=== PATIENT | female | born 1940 | race Caucasian/White ===

== ENCOUNTER 2021-05-02 06:32 | Inpatient (IN) | payer MEDICARE ==
[2021-04-30 12:28] LABS: Basophils # (auto) 0 10 ^3/uL (0-0.2); Basophils % (auto) 0.4 % (0.0-2.0); Eosinophils # (auto) 0 10 ^3/uL (0-0.8); Eosinophils % (auto) 0.5 % (0.0-7.0); Hematocrit 35.4 % (36.0-46.0); Hemoglobin 12.2 g/dL (12.2-16.2); Lymphocytes # (auto) 2.4 10 ^3/uL (0.4-5.4); Lymphocytes % (auto) 29.6 % (10.0-50.0); Mean Corpuscular Hemoglobin 33.2 pg (28.0-32.0); Mean Corpuscular Hgb Conc. 34.3 g/dL (32.0-36.0); Mean Corpuscular Volume 96.7 fL (80.0-100.0); Monocytes # (auto) 0.5 10 ^3/uL (0-1.3); Monocytes % (auto) 5.7 % (0.0-12.0); Neutrophils # (auto) 5.2 10 ^3/uL (1.6-8.6); Neutrophils % (auto) 63.8 % (37.0-80.0); Nucleated Red Blood Cells % 0.2 %; Red Blood Cells 3.67 10^6/uL (4.0-5.20); Red Cell Distribution Width 13.2 % (11.8-14.3); White Blood Cell 8.2 10^3/uL (4.4-10.8)
[2021-04-30 12:48] LABS: Urine Bacteria NONE SEEN /hpf (None Seen); Urine Blood Negative /uL (Negative); Urine Specific Gravity 1.008 (1.001-1.035); Urine WBC 12 /hpf (0 - 5)
[2021-04-30 13:16] LABS: Albumin 3.2 g/dL (3.4-5.0); BUN/Creatinine Ratio 10.9; Bilirubin, Total 0.5 mg/dL (0.2-1.0); Total Protein 6.8 g/dL (6.4-8.2)
[2021-05-02] VITALS (10 sets, daily range): BP systolic 86–119; BP diastolic 46–76
[~2021-05-02] VITALS: Ht 172.7 cm; Wt 64.9 kg
[~2021-05-02 06:32] MED LIST: CLINGEL TOP; ESOM40CA39 PO; GABA300C10 PO; HYDR4CRE EX; POTA-220 PO; ROSU10TA16 PO; TRIA0.1O TOP; [UNRECOGNIZED DRUG - CODE] TOP
[2021-05-02] MEDS ORDERED: TRANEXAMIC ACID 20 ML ONE (07:06)
[2021-05-02] MEDS: BUPIVACAINE W/ EPINEPH 0.25% INJ 50ML MDV ONE ×2 (07:06→09:21)
[2021-05-02] MEDS: VANCOMYCIN HCL 1000 MG VL ONE ×4 (07:08→09:22)
[2021-05-02] MEDS: KETOROLAC TROMETH 30 MG/ML 1ML VIAL ONE ×2 (07:08→09:21)
[2021-05-02] MEDS ORDERED: ACETAMINOPHEN IV 100 ML IV ONE (07:11)
[2021-05-02] MEDS ORDERED: ceFAZolin 1GM/50ML 100 ML IV ONE (07:11)
[2021-05-02] MEDS ORDERED: CELECOXIB 100 MG CAP ONE (07:11)
[2021-05-02] MEDS ORDERED: PREGABALIN CAPSULE 75 MG CAP ONE (07:13)
[2021-05-02] MEDS ORDERED: BUPIVACAINE 0.5% P/F INJ 10 ML VIAL ONE (07:28)
[2021-05-02] MEDS ORDERED: fentaNYL CITRATE 100 MCG/2 ML VL ONE (07:29)
[2021-05-02] MEDS ORDERED: MORPHINE SULF(PF) 0.5MG/ML 10ML VIAL ONE (07:29)
[2021-05-02] MEDS ORDERED: HYDROCORTISONE SOD SUCC 100 MG/2ML INJ VIAL ONE (07:29)
[2021-05-02] MEDS ORDERED: MIDAZOLAM HCL 2MG/2ML 2ml VIAL (1mg/ml) ONE (07:29)
[2021-05-02] MEDS ORDERED: PROPOFOL 10 MG/ML 20 ML IV ONE (07:30)
[2021-05-02] MEDS ORDERED: ONDANSETRON HCL 4 MG/2 ML VIAL ONE (07:30)
[2021-05-02] MEDS ORDERED: ePHEDrine SULFATE 50 MG/ML AMP ONE ×2 (07:30→12:10)
[2021-05-02] MEDS ORDERED: GLYCOPYRROLATE 0.2 MG/ML 1ML VIAL ONE (07:30)
[2021-05-02] MEDS ORDERED: PHENYLEPHRINE HCL 10 MG/ML VL ONE (07:30)
[2021-05-02] MEDS ORDERED: ceFAZolin 1GM/50ML 50 ML IV SCH (09:45)
[2021-05-02] MEDS ORDERED: traMADol HCL 50 MG TAB PO PRN (09:45)
[2021-05-02] MEDS ORDERED: ONDANSETRON HCL 4 MG/2 ML VIAL IV PRN ×3 (09:45→10:00)
[2021-05-02] MEDS ORDERED: HYDROmorphone HCL 2 MG/ML VL IV PRN (09:45)
[2021-05-02] MEDS ORDERED: OXYCODONE W/ ACETAMINOPHEN 5/325MG TABLET PO PRN (09:45)
[2021-05-02] MEDS ORDERED: ACETAMINOPHEN 325 MG TAB PO PRN (09:45)
[2021-05-02] MEDS: LACTATED RINGER'S 1,000 ML IV SCH ×2 (09:45→21:16)
[2021-05-02] MEDS ORDERED: diphenhdrAMINE HCL 50 MG/1 ML VL IV PRN (10:00)
[2021-05-02] MEDS ORDERED: ENOXAPARIN SOD 40 MG/0.4 ML SYRINGE SC SCH (10:00)
[2021-05-02] MEDS ORDERED: NALOXONE HCL 0.4 MG/ML VIAL IV PRN (10:00)
[2021-05-02] MEDS ORDERED: DexAMETHasone SOD PHOS 10MG/1ML VIAL INJ IV PRN (10:00)
[2021-05-02] MEDS: PANTOPRAZOLE 40 MG TAB PO SCH (10:00)
[2021-05-02] MEDS: POTASSIUM CHL 20 Meq TABLET PO SCH (10:00)
[2021-05-02] MEDS: DOCUSATE SOD 100 MG CAP PO SCH ×2 (10:00→21:18)
[2021-05-02] MEDS ORDERED: FOLIC ACID 1 MG, MULTIPLE VITAMIN 10 ML, MAGNESIUM SULF SDV 50% 8 MEQ, THIAMINE INJ 100... INJ SCH ×5 (12:00)
[2021-05-02] MEDS ORDERED: ePHEDrine SULFATE 50 MG/ML AMP IV ONE (12:45)
[2021-05-02] MEDS: ceFAZolin 1GM/50ML 50 ML IV SCH ×2 (13:44→21:16)
[2021-05-02] MEDS: SODIUM CHLOR 0.9% PF (SALINE LOCK) 10ML VIAL/SYR IV SCH ×2 (14:00→21:16)
[2021-05-02] MEDS ORDERED: NITROGLYCERIN 0.4 MG SL TAB SL PRN (16:15)
[2021-05-02] MEDS ORDERED: MORPHINE SULFATE INJECTION 2 MG/ML SYRG IV PRN (16:15)
[2021-05-02] MEDS: HYDROCORTISONE SOD SUCC 100 MG/2ML INJ VIAL IV SCH ×2 (16:30→21:18)
[2021-05-02] MEDS: GABAPENTIN 300 MG CAP PO SCH (21:19)
[2021-05-02] MEDS: ATORVASTATIN 20 MG TAB PO SCH (21:19)
[2021-05-03] VITALS (13 sets, daily range): BP systolic 90–108; BP diastolic 45–64
[2021-05-03 06:06] LABS: Albumin 2.1 g/dL (3.4-5.0); Calcium 7.8 mg/dL (8.5-10.1); Potassium 4.2 mmol/L (3.5-5.1)
[2021-05-03 06:12] LABS: BUN/Creatinine Ratio 13.1; Bilirubin, Total 0.3 mg/dL (0.2-1.0); Total Protein 4.9 g/dL (6.4-8.2)
[2021-05-03] MEDS ORDERED: LORazepam 0.5 MG TAB PO PRN (06:30)
[2021-05-03] MEDS: LACTATED RINGER'S 1,000 ML IV SCH (06:49)
[2021-05-03] MEDS: SODIUM CHLOR 0.9% PF (SALINE LOCK) 10ML VIAL/SYR IV SCH ×3 (06:50→23:25)
[2021-05-03] MEDS: HYDROCORTISONE SOD SUCC 100 MG/2ML INJ VIAL IV SCH (06:50)
[2021-05-03 07:59] LABS: Hematocrit 34.5 % (36.0-46.0); Hemoglobin 11.6 g/dL (12.2-16.2)
[2021-05-03] MEDS: DOCUSATE SOD 100 MG CAP PO SCH ×2 (09:57→23:25)
[2021-05-03] MEDS: POTASSIUM CHL 20 Meq TABLET PO SCH (09:58)
[2021-05-03] MEDS: PANTOPRAZOLE 40 MG TAB PO SCH (09:58)
[2021-05-03] MEDS: ENOXAPARIN SOD 40 MG/0.4 ML SYRINGE SC SCH (09:58)
[2021-05-03] MEDS: HYDROmorphone HCL 2 MG/ML VL IV PRN ×2 (14:36→23:29)
[2021-05-03] MEDS: GABAPENTIN 300 MG CAP PO SCH (23:26)
[2021-05-03] MEDS: ATORVASTATIN 20 MG TAB PO SCH (23:26)
[2021-05-04 05:00] VITALS: BP 122/43
[2021-05-04 05:37] LABS: Basophils # (auto) 0 10 ^3/uL (0-0.2); Eosinophils # (auto) 0.1 10 ^3/uL (0-0.8); Hemoglobin 8.3 g/dL (12.2-16.2); Mean Corpuscular Volume 96.7 fL (80.0-100.0); Monocytes # (auto) 0.5 10 ^3/uL (0-1.3)
[2021-05-04 05:42] LABS: Basophils % (auto) 0.2 % (0.0-2.0); Eosinophils % (auto) 0.8 % (0.0-7.0); Hematocrit 24.4 % (36.0-46.0); Lymphocytes # (auto) 2.3 10 ^3/uL (0.4-5.4); Lymphocytes % (auto) 29.5 % (10.0-50.0); Mean Corpuscular Hemoglobin 33.1 pg (28.0-32.0); Mean Corpuscular Hgb Conc. 34.2 g/dL (32.0-36.0); Neutrophils # (auto) 4.8 10 ^3/uL (1.6-8.6); Neutrophils % (auto) 62.5 % (37.0-80.0); Red Blood Cells 2.52 10^6/uL (4.0-5.20); Red Cell Distribution Width 13.3 % (11.8-14.3); White Blood Cell 7.7 10^3/uL (4.4-10.8)
[2021-05-04 06:01] LABS: Potassium 4.3 mmol/L (3.5-5.1)
[2021-05-04 06:04] LABS: BUN/Creatinine Ratio 13.2; Calcium 8.1 mg/dL (8.5-10.1)
[2021-05-04] MEDS: SODIUM CHLOR 0.9% PF (SALINE LOCK) 10ML VIAL/SYR IV SCH (06:06)
[2021-05-04] MEDS: HYDROmorphone HCL 2 MG/ML VL IV PRN (06:07)
[2021-05-04 08:39] VITALS: BP 102/48
[2021-05-04 09:00] VITALS: BP 102/48
[2021-05-04] MEDS: ENOXAPARIN SOD 40 MG/0.4 ML SYRINGE SC SCH (10:23)
[2021-05-04] MEDS: DOCUSATE SOD 100 MG CAP PO SCH (10:23)
[2021-05-04] MEDS: PANTOPRAZOLE 40 MG TAB PO SCH (10:23)
== END 2021-05-04 10:58 | disposition home or self-care (01) | DRG 470 ==
LOC: SUR 06:32 → CENTRAL 16:08 → TELE-CENTR 20:17
PROVIDERS: ADMIT Orthopaedic Surgery Adult Reconstructive Orthopaedic Surgery; ATTEND Orthopaedic Surgery Adult Reconstructive Orthopaedic Surgery
PROC: B41F1ZZ Fluoroscopy of Right Lower Extremity Arteries using Low Osmolar Contrast (ICD-10-PCS; 2021-05-02)
PROC: 0SR90JA Replacement of Right Hip Joint with Synthetic Substitute, Uncemented, Open Approach (ICD-10-PCS; principal; 2021-05-02 07:34)
DX: M16.11 Unilateral primary osteoarthritis, right hip (principal); M21.751 Unequal limb length (acquired), right femur; Z20.822 Contact with and (suspected) exposure to COVID-19; E78.5 Hyperlipidemia, unspecified; Z85.42 Personal history of malignant neoplasm of other parts of uterus; Z92.21 Personal history of antineoplastic chemotherapy; Z92.3 Personal history of irradiation; Z88.5 Allergy status to narcotic agent; Z88.1 Allergy status to other antibiotic agents; Z85.118 Personal history of other malignant neoplasm of bronchus and lung; I10 Essential (primary) hypertension
CPT/HCPCS: 36415; 72170; 73501; 76001; 80048; 80053; 81001; 85014; 85018; 85025; 86850; 86900; 86901; 97110; 97116; 97163; 97530; C1713; C1776; G0378; J0131; J0690; J1885; J2250; J2405; J2704; J3490